=== PATIENT | male | born 1975 | race Caucasian/White ===

== ENCOUNTER 2017-03-19 11:55 | Inpatient (IN) | payer OTHER ==
[~2017-03-19] VITALS: Ht 180.3 cm; Wt 122.3 kg
[~2017-03-19 11:55] MED LIST: FENOFIBRIC ACI105 MG PO; KLONOPIN1 MG PO; MOTRIN600 MG PO; PEN-VEE K,VEET500 MG PO; PROZAC20 MG PO; SEROQUEL100 MG PO; SEROQUEL400 MG PO; TRAZODONE HCL100 MG PO; TRILAFON4 MG PO
[2017-03-19 13:13] LABS: BASOPHIL COUNT 0.1 K/uL (0-0.1); EOSINOPHIL (%) 3.7 % (0-5); EOSINOPHIL COUNT 0.3 K/uL (0-0.3); HEMATOCRIT 47.4 % (38.0-50.0); IMMATURE GRANULOCYTE (%) 0.6 % (0.0-0.7); IMMATURE GRANULOCYTE COUNT 0.1 K/uL; INSTRUMENT ABS NEUTROPHIL CT 4.3 K/uL; LYMPHOCYTE COUNT 2.5 K/uL (1.0-2.8); MCH 31.8 PG (29.0-34.0); MCHC 34.6 G/DL (30.0-36.0); MCV 91.9 FL (86-99); MEAN PLAT.VOLUME 10.5 uM^3 (9.0-12.4); MONOCYTE (%) 7.2 % (3-12); MONOCYTE COUNT 0.6 K/uL (0-0.8); NEUTROPHIL COUNT 4.3 K/uL (1.8-6.4); PLATELET COUNT 307 K/uL (156-360); RBC DIS.WIDTH-CV 11.8 % (11.8-14.6); RBC DIS.WIDTH-SD 39.6 % (39-53); RED BLOOD COUNT 5.16 M/uL (4.00-5.50); WHITE BLOOD COUNT 7.7 K/uL (4.1-10.2)
[2017-03-19 13:24] LABS: CHLORIDE 104 mEq/L (99-109); POTASSIUM 4.4 mEq/L (3.7-5.4); SODIUM 141 mEq/L (136-147)
[2017-03-19 13:26] LABS: GLUCOSE 105 mg/dL (70-99)
[2017-03-19 13:27] LABS: ANION GAP 9 MEQ/L (2-14)
[2017-03-19 13:29] LABS: SERUM ETHYL ALCOHOL < 10 mg/dL
[2017-03-19 13:30] LABS: GFR ESTIMATE (CALCULATED) 55 mL/min/
[2017-03-19 13:31] LABS: UREA NITROGEN (BUN) 16 mg/dL (9-23)
[2017-03-19 14:11] LABS: ADD MIUA? NO; BILIRUBIN NEGATIVE; BLOOD NEGATIVE; COLOR YELLOW ((YELLOW)); GLUCOSE (STRIP) NEGATIVE; KETONES NEGATIVE; LEUKOCYTES NEGATIVE; NITRITE NEGATIVE; PROTEIN (STRIP) NEGATIVE; SPECIFIC GRAVITY 1.016 (1.000-1.030); UROBILINOGEN 0.2 MG/DL (0.2-1.0)
[2017-03-19 14:22] LABS: AMPHETAMINE NEGATIVE (500 ng/mL); BARBITURATES NEGATIVE (200 ng/mL); BENZODIAZEPINES NEGATIVE (150 ng/mL); COCAINE NEGATIVE (150 ng/mL); INTERNAL CONTROLS VALID? YES; METHADONE NEGATIVE (200 ng/mL); METHAMPHETAMINE NEGATIVE (500 ng/mL); OPIATES (MORPHINE) NEGATIVE (100 ng/mL); OXYCODONE NEGATIVE (100 ng/mL); PHENCYCLIDINE NEGATIVE (25 ng/mL); PROPOXYPHENE NEGATIVE (300 ng/mL); THC CANNABINOIDS NEGATIVE (50 ng/mL); TRICYCLIC ANTIDEPRESSANTS PRESUMPTIVE POSITIVE (300 ng/mL)
[2017-03-19] MEDS ORDERED: TRICOR48 MG PO (15:40)
[2017-03-19] MEDS ORDERED: KLONOPIN0.5 M1 PO (15:40)
[2017-03-19] MEDS ORDERED: EFFEXOR XR37.5 MG PO (15:41)
[2017-03-19] MEDS ORDERED: SEROQUEL XR200 MG PO (15:41)
[2017-03-19] MEDS ORDERED: VENLAFAXINE HC150 M1 PO (15:42)
[2017-03-19] MEDS ORDERED: BENADRYL ALLERG25 MG PO (15:42)
[2017-03-19] MEDS ORDERED: DEPAKOTE250 MG PO (15:43)
[2017-03-19] MEDS ORDERED: CITALOPRAM HBR20 MG PO (15:43)
[2017-03-19] MEDS ORDERED: DEPAKOTE500 MG PO ×2 (15:43)
[2017-03-19] MEDS ORDERED: OLANZAPINE10 MG PO (15:44)
[2017-03-19] MEDS ORDERED: FLUPHENAZINE HC10 MG PO (15:44)
[2017-03-19 16:59] VITALS: BP 133/73
[2017-03-20 07:38] VITALS: BP 153/77
[2017-03-20 15:00] VITALS: BP 172/79
[2017-03-21 08:00] VITALS: BP 126/82
[2017-03-21 15:55] VITALS: BP 122/62
[2017-03-22 07:30] VITALS: BP 127/71
[2017-03-22 15:41] VITALS: BP 133/74
[2017-03-23 07:55] VITALS: BP 128/75
[2017-03-23 16:02] VITALS: BP 132/68
[2017-03-23 16:06] VITALS: BP 132/68
[2017-03-24 08:05] VITALS: BP 155/79
[2017-03-24 15:41] VITALS: BP 153/89
[2017-03-25 07:57] VITALS: BP 144/89
[2017-03-25] MEDS ORDERED: QUETIAPINE FUM400 MG PO (10:12)
[2017-03-25] MEDS ORDERED: EFFEXOR XR75 MG PO ×2 (10:12→10:20)
== END 2017-03-25 12:02 | disposition home or self-care (01) | DRG 885 ==
LOC: EME 11:55 → 1WEST 14:04 → EDOF 14:04 → 1WEST 17:35
PROVIDERS: Emergency Medicine
DX: F25.9 Schizoaffective disorder, unspecified (principal); F33.9 Major depressive disorder, recurrent, unspecified; E78.5 Hyperlipidemia, unspecified; J45.909 Unspecified asthma, uncomplicated
CPT/HCPCS: 80048; 80164; 81003; 85025; 90839; 97150 GO; 97165 GO; 99281; 99284; G0480

== ENCOUNTER 2017-04-25 12:38 | Emergency (ER) | payer OTHER ==
[~2017-04-25] VITALS: Ht 180.3 cm; Wt 122.4 kg
[~2017-04-25 12:38] MED LIST changes: +BENADRYL ALLERG25 MG PO; +CITALOPRAM HBR20 MG PO; +DEPAKOTE250 MG PO; +DEPAKOTE500 MG PO; +EFFEXOR XR37.5 MG PO; +EFFEXOR XR75 MG PO; +FLUPHENAZINE HC10 MG PO; +KLONOPIN0.5 M1 PO; +OLANZAPINE10 MG PO; +QUETIAPINE FUM400 MG PO; +SEROQUEL XR200 MG PO; +TRICOR48 MG PO; +VENLAFAXINE HC150 M1 PO
[2017-04-25 15:16] VITALS: BP 147/90
== END 2017-04-25 15:20 | disposition left against medical advice (07) ==
LOC: EME 12:38
DX: G47.00 Insomnia, unspecified (principal); F20.9 Schizophrenia, unspecified; E78.5 Hyperlipidemia, unspecified; F17.200 Nicotine dependence, unspecified, uncomplicated
CPT/HCPCS: 90839; 99281; 99283